=== PATIENT | male | born 1980 | race Two or more races ===

== ENCOUNTER 2021-03-16 14:52 | Inpatient (IN) | payer BC, OTHER ==
[~2021-03-16] VITALS: Ht 165.1 cm; Wt 69.2 kg
[2021-03-16] MEDS ORDERED: ATOR10TA PO (15:09)
--- NOTE | 2021-03-16 15:10 | NUR ---
RECEIVED PT 40 YRS MALE C/O CHEST PAIN ON AND off for 3 days goting worse today
[2021-03-16 15:58] LABS: HEMATOCRIT 43.9 % (36.7-47.1); MEAN CORPUSCULAR HEMOGLOBIN 30.5 uug (23.8-33.4); MEAN CORPUSCULAR VOLUME 89.5 fL (73.0-96.2); PLATELET COUNT (AUTO) 175 K/uL (152-348)
--- NOTE | 2021-03-16 16:00 | NUR ---
Juani alexander in EDM - 03/16/21 at 1930 by [email or web address] INCONTENT OF NEELAM PT AWKE AND FALLOW COMMAND no ramires in EKG RESTING NO SOB BLood drow by lab tack
[2021-03-16 16:40] LABS: POTASSIUM 3.6 mmol/L (3.5-5.1)
[2021-03-16 16:46] LABS: BILIRUBIN,TOTAL 0.5 mg/dL (0.2-1.0); TOTAL PROTEIN, SERUM 8.6 g/dL (6.4-8.2)
[2021-03-16 16:51] LABS: BILIRUBIN,DIRECT 0.1 mg/dL (0.0-0.2)
--- NOTE | 2021-03-16 17:07 | NUR ---
Juani alexander in EDM - 03/16/21 at 1930 by [email or web address] covid and flu swap sent to lab jose juan anaya pt observe any ramires
--- NOTE | 2021-03-16 17:20 | NUR ---
dinese chest pain no sob or chest pain wating for lab result
--- NOTE | 2021-03-16 18:30 | NUR ---
resting and asleepy no chest pain no change in EKG MONITER
--- NOTE | 2021-03-16 18:35 | NUR ---
Juani alexander in [facility] - 03/16/21 at 1931 by IRENE chaka for ua NA LAB RESULT
--- NOTE | 2021-03-16 19:00 | NUR ---
HAND OF TO JORDY .Jeffrey RN PT awake fallow command no sob no chest pain
[2021-03-16 19:53] LABS: MAGNESIUM 1.7 mg/dL (1.8-2.4)
--- NOTE | 2021-03-16 21:00 | NUR ---
Report received from [employer] WORK[employer], for pending Telemetry admission.
--- NOTE | 2021-03-16 21:00 | NUR ---
Report given to ANDREY Mancia for admission at 3rd Floor Tele. Pt alert and oriented x 4, no acute distress at this time.
[2021-03-16 22:00] VITALS: BP 131/81
--- NOTE | 2021-03-16 22:00 | NUR ---
Admitted patient from ER. Able to transfer from [facility] to bed ambulating. AAOx4. Is a good historian. States he started having sharp pains to left chest since 2pm when he woke up at home. 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 Patient had a back injury in March 2018, has received multiple epidurals since but they did not work. he had a lumbar fusion on November 2020 and now has been able to wean off pain medications. He is only taking Tylenol #3 PRN, last time he took [place] was 03/10/21. He still has 6-7/ 10 chest pain right now but does not wish to take anything for the pain. Occasional sharp pain come and go but do not last. He would like to have Coronary calcium scan and stress test during is hospitalization. He has not had chest pain in the past but his mother and father both had PA in their 40's. Patient placed on Telemetry at this time, NSR. Call light within reach.
[2021-03-16] MEDS ORDERED: ONDANSETRON 4 MG/2 ML VIAL IV PRN (22:30)
[2021-03-16] MEDS ORDERED: NITROGLYCERIN 0.4 MG/TAB BOTTLE SL PRN (22:30)
[2021-03-16] MEDS ORDERED: MORPHINE SULFATE 2 MG/1 ML DISP.SYRIN IV PRN (22:30)
--- NOTE | 2021-03-17 03:44 | NUR ---
Patient c/o of severe headache 11/04 at 3am with chest pain /. Morphine 1mg given via IV. Effective for chest pain at this time but headache remains at 8. Also, c/o acid reflux. requesting anything to help with acid reflux, states he takes nexium, prevacid or omeprazole at home. Dr. Joellen weinstein.
--- NOTE | 2021-03-17 03:57 | NUR ---
Orders for Tylenol #3 1 tab q6hrs PRN and Protonix 40mg PO QD ( to start now) received from Dr. Cuenca.
[2021-03-17] MEDS ORDERED: PANTOPRAZOLE SODIUM 40 MG TABLET.DR PO SCH ×2 (04:00→21:00)
[2021-03-17] MEDS ORDERED: ACETAMINOPHEN/CODEINE 300-30 MG TABLET PO PRN (04:00)
[2021-03-17 04:39] VITALS: BP 126/78
[2021-03-17 06:40] LABS: HEMATOCRIT 40.7 % (36.7-47.1); MEAN CORPUSCULAR HEMOGLOBIN 30.7 uug (23.8-33.4); MEAN CORPUSCULAR VOLUME 89.2 fL (73.0-96.2); PLATELET COUNT (AUTO) 154 K/uL (152-348)
[2021-03-17 06:57] LABS: CREATININE 1.1 mg/dL (0.6-1.3); POTASSIUM 3.6 mmol/L (3.5-5.1)
--- NOTE | 2021-03-17 06:57 | NUR ---
Patient awake for this shift, unable to sleep. Tylenol #3 with help for severe headache. Patient still c/o chest pain, intermittently with radiation to left neck and arm. Chronic pain to left side of back and neck still noted. Protonix is helpful for acid reflux. Safety measures continued. Call light within reach.
--- NOTE | 2021-03-17 08:15 | NUR ---
awake,oriented x4, denies of chest pain, tele SR 60's, seen by Dr Giang- for cardiac CTA today- explained plan fo care- verbalized understanding, HECTOR Schafer informed of plan of care- will get back for schedule
[2021-03-17] MEDS: ASPIRIN 81 MG TAB.CHEW PO SCH (08:25)
[2021-03-17] MEDS: METOPROLOL TARTRATE 50 MG TABLET PO SCH ×2 (08:26→17:17)
[2021-03-17] MEDS ORDERED: POTASSIUM CHLORIDE 20 MEQ POWDER PACKET PO ONE (08:30)
[2021-03-17] MEDS ORDERED: POTASSIUM CHLORIDE 20 MEQ TAB.PRT.SR PO ONE (08:45)
[2021-03-17] MEDS: MAGNESIUM SULFATE/D5W 100 ML IV SCH ×2 (09:28→10:39)
--- NOTE | 2021-03-17 11:40 | NUR ---
CM called and CTA cardiac will be done tomorrow at 10 am by BLS transportation- okayed by Dr Giang, pt informed and in agreeable
[2021-03-17 12:00] VITALS: BP 148/68
[2021-03-17] MEDS ORDERED: ATOR20TA PO (13:01)
[2021-03-17 16:22] VITALS: BP 120/80
--- NOTE | 2021-03-17 18:46 | NUR ---
no distress noted, no chest pain, tele remains SR 70's, at bedside, all needs attended and met, echo done earlier at bedside, call light within reach
[2021-03-17 20:47] VITALS: BP 136/87
[2021-03-17] MEDS ORDERED: ATORVASTATIN 10 MG TABLET PO SCH (21:00)
[2021-03-18 00:20] VITALS: BP 120/68
[2021-03-18 05:08] VITALS: BP 91/43
--- NOTE | 2021-03-18 06:32 | NUR ---
Pt rested well in between care; no acute distress; denies any pain; protonix changed time; pt will be NPO for CTA coronary.
[2021-03-18 07:49] LABS: MAGNESIUM 2.3 mg/dL (1.8-2.4)
[2021-03-18] MEDS: ASPIRIN 81 MG TAB.CHEW PO SCH (09:00)
[2021-03-18] MEDS ORDERED: METOPROLOL TARTRATE 25 MG TABLET PO SCH (09:00)
--- NOTE | 2021-03-18 09:10 | NUR ---
patient npo morning meds held.
--- NOTE | 2021-03-18 09:12 | NUR ---
patient picked up by joce to go to ct angiogram at [facility], patient with v/s wnl at this time.
[2021-03-18 12:00] VITALS: BP 109/65
[2021-03-18 16:00] VITALS: BP 122/70
--- NOTE | 2021-03-18 16:25 | NUR ---
CT angiogram results sent to [facility], per MD patient will be discharged.
--- NOTE | 2021-03-18 16:33 | NUR ---
new discharge orders in place.
--- NOTE | 2021-03-18 17:00 | NUR ---
reviewed all discharge orders with patient. reminded patient to "follow up with primary healthcare provider within 1 week. follow up with primary healthcare provider for vaccinations if needed. return to nearest emergency room or call 911 if symptoms worsen." patient states understanding. inventory list reviewed with patient all belongings present. patient states will pick him up.
--- NOTE | 2021-03-18 17:20 | NUR ---
per patient is going to be downstairs, iv site removed, minimal bleeding noted to site, pressure applied and dressing placed.
--- NOTE | 2021-03-18 17:20 | NUR ---
patient assisted downstairs, gait is steady, v/s wnl, afebrile, no c/o chest pain at this time. all belongings with patient upon discharge, all paperwork signed.
== END 2021-03-18 17:20 | disposition home or self-care (01) | DRG 310 ==
LOC: ER 14:52 → TELE3 21:10
PROVIDERS: ADMIT Internal Medicine; ATTEND Student in an Organized Health Care Education/Training Program
DX: I49.9 Cardiac arrhythmia, unspecified (principal); E78.5 Hyperlipidemia, unspecified; Z20.822 Contact with and (suspected) exposure to COVID-19; Z98.1 Arthrodesis status; I49.3 Ventricular premature depolarization; E83.42 Hypomagnesemia; Z79.899 Other long term (current) drug therapy; Z82.49 Family history of ischemic heart disease and other diseases of the circulatory system
CPT/HCPCS: 36415; 70030-TC; 71045; 83735; 84100; 85025; 93005; 93307; A4663; G0378; J2270; J3475; J7050